=== PATIENT | male | born 1985 | race Caucasian/White ===

== ENCOUNTER 2021-07-23 07:20 | Emergency (ER) | payer BC, SELFPAY ==
[2021-07-23 07:24] VITALS: BP 121/86; PULSE 78; RESP 16; TEMP 36.7; O2SAT 100
--- NOTE | 2021-07-23 07:56 | ED.SKABFB ---
HPI - Skin/Abscess/Foreign Bdy General Chief complaint: Skin/Abscess/Foreign Body Stated complaint: Hives Time Seen by Provider: 07/23/21 07:24 History of Present Illness HPI narrative: Patient is a 35-year-old male who presents ER with rash to his trunk and upper and lower extremities. Rashes developed over the last 2 days. Its urticarial in nature. It is only on the lateral aspects of his trunk from the hips up to the axilla and then starts to move down the arms on the volar aspect to the wrists and antecubital fossa. Similarly he has very faint urticaria to the posterior knee bilaterally. Pruritic in nature. No fevers or chills or sweats. Noted to be breathing or swallowing. Denies any new laundry detergents or body washes or perfumes. She has not been exposed to anything additional in nature. He was recently started on a prednisone taper on 07/12 for a poison alfred exposure 1 month ago where he had a lot of vesicles and discomfort around his ankles. This is improving. Patient takes no other oral medications. He has used topical hydrocortisone and Benadryl and oral Benadryl without relief. Related Data Allergies Allergy/AdvReac Type Severity Reaction Status Date / Time No Known Allergies Allergy Verified 07/23/21 07:27 Review of Systems Review of Systems: All systems reviewed & are unremarkable except as noted in HPI and below Constitutional: Constitutional: Denies chills, Denies fever(s) and Denies weakness ENT: Denies nasal congestion and Denies sore throat Respiratory: Respiratory: Denies cough and Denies dyspnea Integumentary/Breasts: Skin/Breast: Reports pruritus, Reports erythema and Reports rash PMFSH Past Medical History Medical History (Updated 07/23/21 @ 08:14 by Yaakov Horton MD) Healthy adult male Surgical History Surgical History (Updated 07/23/21 @ 08:12 by Yaakov Horton MD) No history of previous surgery Exam Narrative: GENERAL: Well-appearing, well-nourished, and in no acute distress. HEAD: Normocephalic, atraumatic. EYES: PERRL and EOMI. EXTREMITIES: Normal range of motion. No edema. SKIN: Warm, dry. Urticarial rash with lesions no larger than 1.5 cm in diameter that is most prominently focused from the inferior aspect of the axilla bilaterally down to the hip girdle. There is also a small faint urticarial lesions going down the legs and arms. No pustules or vesicles. Nontender. NEURO: Alert and oriented x3. PSYCH: Normal mood and affect. Course Course Emergency Course: Will place on daily Zyrtec and switch to increase strength topical steroid. Also recommend Atarax for pruritus. Patient is established with primary care he may need to go see an spring manufacturing set up technician if this persists. Also recommended removing any dyed or scented detergents/soaps in the home. Vital Signs Vital signs: Vital Signs Temperature 98.1 F 07/23/21 07:24 Pulse Rate 78 07/23/21 07:24 Respiratory Rate 16 07/23/21 07:24 Blood Pressure 121/86 07/23/21 07:24 Pulse Oximetry 100 07/23/21 07:24 Temperature 98.1 F 07/23/21 07:24 Pulse Rate 78 07/23/21 07:24 Respiratory Rate 16 07/23/21 07:24 Blood Pressure 121/86 07/23/21 07:24 Pulse Oximetry 100 07/23/21 07:24 Discharge Plan Discharge Clinical Impression: Urticaria Patient Disposition: Home, Self-Care Condition: Stable Instructions: Urticaria (ED) Additional Instructions: Return the ER if you cannot breathe, you cannot swallow, your developing fever of 100.4?F or higher, you have additional concerns. Apply the steroid cream to the rash and also take Zyrtec and hydroxyzine for your rash. Prescriptions: New triamcinolone acetonide 0.1 % cream 1 applic topical BID Qty: 80 RF: 0 hydroxyzine pamoate [Vistaril] 25 mg capsule 25 mg PO TID PRN (Reason: itching) Qty: 20 RF: 0 cetirizine [Zyrtec] 10 mg tablet 10 mg PO DAILY Qty: 14 RF: 0 Follow-up/Referrals: PHYSICIAN,FILER REPAIRER [Primary Care Pr
== END 2021-07-23 08:23 | disposition home or self-care (01) ==
PROVIDERS: Emergency Provider Emergency Medicine
DX: L50.9 Urticaria, unspecified (principal)
CPT/HCPCS: 99283